=== PATIENT | male | born 1985 | race Caucasian/White ===

== ENCOUNTER 2019-07-10 16:29 | Emergency (ER) | payer SELFPAY ==
[2019-07-10 16:39] VITALS: RESP 18
[2019-07-10] MEDS ORDERED: IBUPROFEN 600 MG TAB PO STA (16:49)
[2019-07-10] MEDS ORDERED: ACETAMINOPHEN TAB 500 MG TAB PO STA (16:49)
--- NOTE | 2019-07-10 16:54 | ED ---
General Adult HPI - General Chief complaint: Fever Stated complaint: fever/dizziness/body aches Time Seen by Provider: 07/10/19 16:41 Source: patient, RN notes reviewed Mode of arrival: ambulatory Limitations: no limitations - History of Present Illness Initial comments: 34-year-old male presents to the emergency department for a chief complaint of fever. Patient states he has had a fever for the past 2 days. States he did take 400 mg of Motrin about 5 hours ago but has not had anything else for the fever. Patient states he has a slight cough and slight congestion. He denies a sore throat. He admits to body aches which are generalized in nature. He denies significant headache or neck pain. Patient has not had any recent domestic or foreign travel. Patient works at [employer] however no known exposures to [employer]. He denies any significant shortness of breath.Patient has no other complaints at this time including shortness of breath, chest pain, abdominal pain, nausea or vomiting, headache, or visual changes. - Related Data Previous Rx's Medication Instructions Recorded Azithromycin [Zithromax Z-pack] 250 mg PO DIRECTED #6 tab 07/10/19 Allergies Allergy/AdvReac Type Severity Reaction Status Date / Time Iodinated Contrast Media Allergy Nausea & Verified 07/10/19 16:39 Vomiting Review of Systems ROS Statement: Those systems with pertinent positive or pertinent negative responses have been documented in the HPI. ROS Other: All systems not noted in ROS Statement are negative. Past Medical History Past Medical History: No Reported History History of Any Multi-Drug Resistant Organisms: None Reported Additional Past Surgical History / Comment(s): eye sx Past Psychological History: No Psychological Hx Reported Smoking Status: Former smoker Past Alcohol Use History: None Reported Past Drug Use History: None Reported General Exam Limitations: no limitations General appearance: alert, in no apparent distress Head exam: Present: atraumatic, normocephalic, normal inspection Eye exam: Present: normal appearance, PERRL, EOMI. Absent: scleral icterus, conjunctival injection, periorbital swelling ENT exam: Present: normal exam, normal oropharynx, mucous membranes moist, TM's normal bilaterally, normal external ear exam Neck exam: Present: normal inspection, full ROM. Absent: tenderness, meningismus, lymphadenopathy Respiratory exam: Present: normal lung sounds bilaterally. Absent: respiratory distress, wheezes, rales, rhonchi, stridor Cardiovascular Exam: Present: regular rate, normal rhythm, normal heart sounds. Absent: systolic murmur, diastolic murmur, rubs, gallop, clicks GI/Abdominal exam: Present: soft, normal bowel sounds. Absent: distended, tenderness, guarding, rebound, rigid Neurological exam: Present: alert Psychiatric exam: Present: normal affect, normal mood Course Vital Signs 07/10/19 07/10/19 16:36 17:45 Temperature 102.9 F H 101.0 F H Pulse Rate 115 H 94 Respiratory 18 18 Rate Blood Pressure 109/72 103/58 O2 Sat by Pulse 98 96 Oximetry Medical Decision Making - Medical Decision Making Patient presents with a fever of 102.9 and presumed reflexive tachycardia of 115. However patient is well-appearing. Physical exam is unremarkable. Chest x-ray shows a left lower lobe pneumonia. Patient was given a shot of Rocephin here in the emergency department. Patient will be treated with azithromycin. I did discuss self quarantine for 14 days. At this time patient is stable and under current recommendations does not qualify for influenza or Covid testing. Mask and goggles were worn in the evaluation of this patient. Disposition Clinical Impression: Pneumonia Disposition: HOME SELF-CARE Condition: Good Instructions (If sedation given, give patient instructions): Fever in Adults (ED), Pneumonia (ED) Additional Instructions: Please take antibiotic as directed starting tomorrow. Take Motrin and Tylenol alternating every 3 hours as needed for fever. Please follow-up with primary care in 1-2 days for a recheck as well as to ensure resolution of pneumonia. If you have worsening symptoms or difficulty breathing return to the emergency department immediately. Prescriptions: Azithromycin [Zithromax Z-pack] 250 mg PO DIRECTED #6 tab Is patient prescribed a controlled substance at d/c from ED?: No Referrals: Mini Velez MD [Primary Care Provider] - 1-2 days Time of Disposition: 17:35
[2019-07-10] MEDS ORDERED: cefTRIAXone 1,000 MG VIAL (IM USE) IM STA (17:30)
--- NOTE | 2019-07-10 17:31 | XR ---
EXAMINATION TYPE: XR chest 2V DATE OF EXAM: 07/10/2019 COMPARISON: NONE HISTORY: Cough and fever TECHNIQUE: 2 views FINDINGS: There is some airspace infiltrate at the lateral left lung base. Right lung is clear. Heart and mediastinum are normal. Bony thorax is intact. IMPRESSION: Left lower lobe pneumonia. Normal heart.
[2019-07-10 17:47] VITALS: BP 103/58; PULSE 94; TEMP 101
== END 2019-07-10 17:51 | disposition home or self-care (01) ==
LOC: EC 16:29
DX: J18.9 Pneumonia, unspecified organism (principal); R00.0 Tachycardia, unspecified; R42 Dizziness and giddiness; Z87.891 Personal history of nicotine dependence; Z91.041 Radiographic dye allergy status
CPT/HCPCS: 71046; 99283; 96372; J0696